=== PATIENT | male | born 1970 | race Asian ===

== ENCOUNTER 2024-06-11 08:06 | Emergency (ER) | payer OTHER ==
[2024-06-11] MEDS ORDERED: TDAP (DIPHTH,PERTUSS(ACELL),TET VAC) 0.5 ML VIAL IMVAC ONE (08:24)
[2024-06-11] MEDS ORDERED: HYDROCODONE/APAP 5/325 MG TAB ONE (08:24)
--- NOTE | 2024-06-11 09:11 | RAD REPORT ---
EXAM: XR LEFT HAND HISTORY: Pain. PAIN COMPARISON: None TECHNIQUE: Multiple projections of the left hand submitted. FINDINGS: Soft tissue defect is seen involving the first finger laceration. Tiny radiodensities are present in the region presumably debris/foreign bodies. Small radiodensity al so projects over the dorsal aspect of the third finger.. No fracture or dislocation.
[2024-06-11] MEDS ORDERED: LIDOCAINE 1% 20 ML MDV ONE (09:50)
--- NOTE | 2024-06-11 11:00 | ER ---
Nurse's Notes 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 ll1 Bleeding controlled at this time. Coronavirus screen: Client denies travel out of the [place] in the last 14 days. At this time, the client does not indicate any symptoms associated with coronavirus-19. Ebola Screen: Patient denies travel to an Ebola-affected area in the 21 days before illness onset. Complicating Factors: There are no complicating factors for this patient. Initial Sepsis Screen: Does the patient meet any 2 criteria? No. Patient's initial sepsis screen is negative. Does the patient have a suspected source of infection? No. Patient's initial sepsis screen is negative. Risk Assessment: Do you want to hurt yourself or someone else? Patient reports no desire to harm self or others. Onset of symptoms was June 11, 2024. 08:09 Method Of Arrival: Ambulatory ll1 08:09 Acuity: SNEHAL 3 ll1 Triage Assessment: 08:11 General: Appears uncomfortable, Behavior is calm, cooperative, appropriate for age. ll1 Pain: Complains of pain in palmar aspect of proximal phalanx of left thumb Pain currently is 7 out of 10 on a pain scale. Quality of pain is described as aching, throbbing. Derm: Reports laceration L thumb. Musculoskeletal: Reports pain in palmar aspect of proximal phalanx of left thumb. Injury Description: Laceration. Historical: - Allergies: 08:11 No Known Allergies; ll1 - Home Meds: 08:11 None [Active]; ll1 - PMHx: 08:11 None; ll1 - PSHx: 08:11 None; ll1 - Immunization history:: Last tetanus immunization: unknown. - Infectious Disease History:: Denies. - Social history:: Smoking status: Patient reports the use of cigarette tobacco products, smokes two packs cigarettes per day. Screenin:17 [facility] ED Fall Risk Assessment (Adult) History of falling in the last 3 months, iw including since admission No falls in past 3 months (0 pts) Confusion or Disorientation No (0 pts) Intoxicated or Sedated No (0 pts) Impaired Gait No (0 pts) Mobility Assist Device Used No (0 pt) Altered Elimination No (0 pt) Score/Fall Risk Level 0 - 2 = Low Risk Oriented to surroundings, Maintained a safe environment. Abuse screen: Denies threats or abuse. Nutritional screening: No deficits noted. Tuberculosis screening: No symptoms or risk factors identified. Assessment: 08:10 General: Appears in no apparent distress. Behavior is calm. Pain: Complains of pain in iw left hand. Neuro: Level of Consciousness is awake, alert, obeys commands, Oriented to person, place, time, situation, Moves all extremities. Cardiovascular: Patient's skin is warm and dry. Respiratory: Respiratory effort is even, unlabored. GI: Abdomen is non-distended. Derm: Skin is healthy with good turgor. Musculoskeletal: Range of motion: intact in all extremities. Injury Description: Laceration sustained to palmar aspect of distal phalanx of left thumb and palmar aspect of proximal phalanx of left thumb is contaminated, jagged, 2.6 to 7.5 cm long, was sustained 30-60 minutes ago. is bleeding a small amount. 10:00 Reassessment: Patient appears in no apparent distress at this time. Patient and/or iw family updated on plan of care and expected duration. Pain level reassessed. Dr. Gallo at bedside performing laceration repair. 10:31 Reassessment: Dr. gallo remains at bedside , suturing in progress. Vital Signs: 08:09 BP 144 / 92; Pulse 73; Resp 17; Temp 98.1; Pulse Ox 96% on R/A; Weight 52.16 kg; Height iw 5 ft. 4 in. ; 08:09 Body Mass Index 19.74 (52.16 kg, 162.56 cm) ED Course: 08:09 Patient arrived in ED. ll1 08:09 Campbell Gallo DO is Attending Physician. ms3 08:10 Renetta Gill, RN is Primary Nurse. iw 08:11 Triage completed. ll1 08:11 Arm band placed on Patient placed in an exam room, on a stretcher. ll1 09:05 Hand Left 3 View XRAY In Process Unspecified. EDMS 09:56 Renetta Gill, RN is Primary Nurse. iw 10:00 Patient has correct armband on for positive identification. iw 10:59 Cristhian Graves DO is Referral Physician. ms3 11:00 Assist provider with laceration repair on palmar aspect of proximal phalanx of left iw thumb and palmar aspect of distal phalanx of left thumb that was between 7.6 to 12.5 cm using sutures. Set up tray. Performed by Campbell Gallo DO Dressed with 4X4s, Flora, Patient tolerated well. 11:21 Patient did not have IV access during this emergency room visit. iw Administered Medications: 08:34 Drug: Boostrix Tdap IM 0.5 ml IM once; as a single dose Route: IM; Site: right deltoid; iw 09:59 Follow up: Response: No adverse reaction iw 08:34 Drug: HYDROcodone-acetaminophen PO 5 mg-325 mg 1 tabs PO once Route: PO; iw 09:59 Follow up: Response: No adverse reaction; RASS: Alert and Calm (0) iw 09:59 Drug: Lidocaine Infiltration (1 %) 20 ml 20 ml Infiltration once; to bedside {Note: iw administered now by Dr. Gallo to wound.} Volume: 20 ml; Route: Infiltration; 11:20 Drug: Trimethoprim-Sulfamethoxazole PO (160 mg-800 mg (DS) 1 tablet PO once Route: PO; iw Medication: 08:33 Vaccine Information Statement (VIS) provided today. Questions and/or concerns iw addressed. VIS edition date: March 10, 2021. Outcome: 11:00 Discharge ordered by . ms3 11:20 Discharged to home ambulatory, with friend, iw 11:20 Condition: good 11:20 Discharge instructions given to patient, friend, Instructed on discharge instructions, follow up and referral plans. medication usage, wound care, Demonstrated understanding of instructions, follow-up care, medications, wound care, Prescriptions given X 1, 11:21 Patient left the ED. iw Signatures: Dispatcher [employer] EDMS Renetta Gill RN RN iw Rosanna Casey RN RN llCampbell Alejo DO DO ms3 Corrections: (The following items were deleted from the chart) 08:34 08:09 Pulse 73bpm; Resp 17bpm; Pulse Ox 96% RA; 52.16 kg; Height 5 ft. 4 in.; BMI: iw 19.7; ll1
--- NOTE | 2024-06-11 11:00 | EDPHYS ---
Physician Documentation [facility] Name: Ashwin Vela Age: 53 yrs Sex: Male : 1970 Arrival Date: 06/11/2024 Time: 08:06 Bed 4 Private MD: ED Physician Campbell Carbajal HPI: 06/11 08:15 This 53 yrs old Male presents to ER via Ambulatory with complaints of Laceration To ms3 Hand. 08:15 The patient presented with a laceration to the thumb after an accident involving ms3 removing a large old garage door. While attempting to dismantle the door, a piece came back and cut the patient's thumb. The patient reported a pain level of seven out of ten, describing the pain as throbbing. The patient was unsure of the date of their last tetanus shot. The patient was able to feel touch and move the thumb.. Historical: - Allergies: 08:11 No Known Allergies; ll1 - Home Meds: 08:11 None [Active]; ll1 - PMHx: 08:11 None; ll1 - PSHx: 08:11 None; ll1 - Immunization history:: Last tetanus immunization: unknown. - Infectious Disease History:: Denies. - Social history:: Smoking status: Patient reports the use of cigarette tobacco products, smokes two packs cigarettes per day. ROS: 08:15 Constitutional: Negative for fever, and chills. Cardiovascular: Negative for chest ms3 pain, and palpitations. Respiratory: Negative for shortness of breath, cough, wheezing, and pleuritic chest pain, Abdomen/GI: Negative for abdominal pain, nausea, vomiting, diarrhea, and constipation, 08:15 MS/extremity: Positive for laceration, of the left thumb, Negative for decreased range of motion, Exam: 08:15 Constitutional: This is a well developed, well nourished patient who is awake, alert, ms3 and in no acute distress. Head/Face: Normocephalic, atraumatic. Chest/axilla: Normal chest wall appearance and motion. Nontender with no deformity. Cardiovascular: Regular rate and rhythm with a normal S1 and S2. No gallops, murmurs, or rubs. Normal PMI, no JVD. No pulse deficits. Respiratory: Lungs have equal breath sounds bilaterally, clear to auscultation and percussion. No rales, rhonchi or wheezes noted. No increased work of breathing, no retractions or nasal flaring. Abdomen/GI: Soft, non-tender, with normal bowel sounds. No distension or tympany. No guarding or rebound. No evidence of tenderness throughout. 08:15 Skin: injury, laceration(s), the wound is approximately 10 cm(s), of the left thumb, Vital Signs: 08:09 BP 144 / 92; Pulse 73; Resp 17; Temp 98.1; Pulse Ox 96% on R/A; Weight 52.16 kg; Height iw 5 ft. 4 in. ; 08:09 Body Mass Index 19.74 (52.16 kg, 162.56 cm) iw Laceration: 13:44 Wound Repair of 10cm ( 3.9in ) subcutaneous laceration to palmar aspect of proximal ms3 phalanx of left thumb and palmar aspect of distal phalanx of left thumb. Irregularly shaped.. Skin/tissue flap noted.. Distal neuro/vascular/tendon intact. Anesthesia: Digital block administered with 6 mls of 1% lidocaine. Wound prep: Extensive cleansing by me. Skin closed with 20 4-0 Prolene using simple sutures and sterile technique. Dressed with non-adherent dressing. Patient tolerated well. MDM: 08:15 Medical Screening Exam initiated ms3 08:15 Differential diagnosis: superficial laceration, tendon injury, vascular injury, ms3 Laceration. ED course: Patient with sensation and full ROM of Left thumb. Tendon laceration less likely. Will obtain x-ray to rule out fracture. 13:44 Data reviewed: vital signs, nurses notes, radiologic studies, and as a result, I will ms3 discharge patient. I considered the following discharge prescriptions or medication management in the emergency department Medications were administered in the Emergency Department. See MAR. Counseling: I had a detailed discussion with the patient and/or guardian regarding the historical points, exam findings, and any diagnostic results supporting the discharge/admit diagnosis, radiology results, the need for outpatient follow up, to return to the emergency department if symptoms worsen or persist or if there are any questions or concerns that arise at home. Special discussion: I discussed with the patient/guardian in detail that at this point there is no indication for admission to the hospital. It is understood, however, that if the symptoms persist or worsen the patient needs to return immediately for re-evaluation. ED course: Discussed necessity for sutures to removed in 2 weeks with patient. 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 Wound was irrigated with normal saline prior to closure. No foreign bodies were visualized. Discussed with patient necessity to follow-up with Dr. Vázquze on Saturday for reevaluation. At time of discharge patient wound hemostatic, patient with full range of motion of PIP, DIP, MCP joints. All questions were answered. Return precautions discussed include erythema, drainage, worsening symptoms, or any other concerns. Discussed discharge instructions via automatic dispenser mechanic Elizabeth #[id number]. 06/11 08:13 Order name: Hand Left 3 View XRAY; Complete Time: 09:30 ms3 06/11 09:35 Order name: Dressing - Wound; Complete Time: 11:20 ms3 06/11 09:35 Order name: Gloves, Sterile; Complete Time: 09:59 ms3 06/11 09:35 Order name: Prolene, Sutures; Complete Time: 09:59 ms3 06/11 09:35 Order name: Setup Suture Tray; Complete Time: 09:59 ms3 Administered Medications: 08:34 Drug: Boostrix Tdap IM 0.5 ml IM once; as a single dose Route: IM; Site: right deltoid; iw 09:59 Follow up: Response: No adverse reaction iw 08:34 Drug: HYDROcodone-acetaminophen PO 5 mg-325 mg 1 tabs PO once Route: PO; iw 09:59 Follow up: Response: No adverse reaction; RASS: Alert and Calm (0) iw 09:59 Drug: Lidocaine Infiltration (1 %) 20 ml 20 ml Infiltration once; to bedside {Note: iw administered now by Dr. Carbajal to wound.} Volume: 20 ml; Route: Infiltration; 11:20 Drug: Trimethoprim-Sulfamethoxazole PO (160 mg-800 mg (DS) 1 tablet PO once Route: PO; iw Disposition Summary: 06/11/24 11:00 Discharge Ordered Notes: Location: Home ms3 Condition: Stable ms3 Diagnosis - Laceration with foreign body of left thumb without damage to nail, initial encounterms3 Followup: ms3 - With: Cristhian Graves, DO - When: 2 - 3 days - Reason: Recheck today's complaints Discharge Instructions: - Discharge Summary Sheet ms3 - Laceration Care, Adult ms3 - Laceration Care, Adult, [id number] ms3 Forms: - Medication Reconciliation Form ms3 - Antibiotic Education ms3 - Prescription Opioid Use ms3 - Patient Portal Instructions ms3 - Leadership Thank You Letter ms3 Prescriptions: - Bactrim DS 800-160 mg Oral Tablet - take 1 tablet ORAL route every 12 hours for 10 days; 20 tablet; Refills: 0, ms3 Product Selection Permitted Signatures: Dispatcher [employer] Renetta Bruno, RN RN iw Rosanna Casey RN RN ll1 Campbell Carbajal DO DO ms3 Corrections: (The following items were deleted from the chart) 08:14 08:14 Hand Left 3 View+[email or web address] ordered. EDGA EDMS
[2024-06-11] MEDS ORDERED: SMZ./TMP. 800/160 MG TABLET ONE (11:11)
[2024-06-11 11:26] VITALS: BP 144/92; TEMP 98.1; O2SAT 96
== END 2024-06-11 11:21 | disposition home or self-care (01) ==
LOC: ER 08:06
DX: S61.022A Laceration with foreign body of left thumb without damage to nail, initial encounter (principal); F17.210 Nicotine dependence, cigarettes, uncomplicated
CPT/HCPCS: 73130; 96372; 99284; 12044; J2003